=== PATIENT | male | born 1935 | race Caucasian/White ===

== ENCOUNTER 2018-09-10 07:41 | Day surgery (SDC) | payer MEDICARE, OTHER ==
[~2018-09-10] VITALS: Ht 177.8 cm; Wt 92.1 kg
[~2018-09-10 07:41] MED LIST: Adult Low Dose81 MG PO; Omeprazole20 M1 PO
== END 2018-09-10 10:18 | disposition home or self-care (01) ==
LOC: ORSCSDS 07:41
PROVIDERS: Internal Medicine Gastroenterology
PROC: 0DBM8ZX Excision of Descending Colon, Via Natural or Artificial Opening Endoscopic, Diagnostic (ICD-10-PCS; principal; 2018-09-10 09:00)
PROC: 0DBK8ZX Excision of Ascending Colon, Via Natural or Artificial Opening Endoscopic, Diagnostic (ICD-10-PCS; principal; 2018-09-10 09:00)
PROC: 0DB58ZX Excision of Esophagus, Via Natural or Artificial Opening Endoscopic, Diagnostic (ICD-10-PCS; 2018-09-10 09:00)
DX: Z12.11 Encounter for screening for malignant neoplasm of colon (principal); Z86.010 Personal history of colon polyps; D12.2 Benign neoplasm of ascending colon; D12.4 Benign neoplasm of descending colon; K57.30 Diverticulosis of large intestine without perforation or abscess without bleeding; K64.4 Residual hemorrhoidal skin tags; K64.8 Other hemorrhoids; K21.0 Gastro-esophageal reflux disease with esophagitis; E78.5 Hyperlipidemia, unspecified; K44.9 Diaphragmatic hernia without obstruction or gangrene; Z79.899 Other long term (current) drug therapy
CPT/HCPCS: 88305; J2704; J7120

== ENCOUNTER 2022-01-14 08:24 | Day surgery (SDC) | payer MEDICARE, OTHER ==
[~2022-01-14] VITALS: Ht 180.3 cm; Wt 88.9 kg
--- NOTE | 2022-01-14 08:57 | NUR ---
01/14/22 0857 Sascha De Los Santos TETRACAINE AT 0843 INTO RIGHT EYE PLEDGET AT 846 INTO RIGHT EYE
--- NOTE | 2022-01-14 11:15 | NUR ---
01/14/22 1115 Ian Oneill PT D/C TO HOME AMBU TO CAR DRIVEN BY , AOX3, KATY LS CTA, VS WNL, [id number] RA, NO C/O PAIN, NV, PT VU D/C INSTRUCTIONS, DENIES ANY NEEDS.
== END 2022-01-14 11:13 | disposition home or self-care (01) ==
LOC: ORSCSDS 08:24
PROVIDERS: Student in an Organized Health Care Education/Training Program
PROC: 08DJ3ZZ Extraction of Right Lens, Percutaneous Approach (ICD-10-PCS; principal; 2022-01-14 09:45)
DX: H25.13 Age-related nuclear cataract, bilateral (principal); H52.201 Unspecified astigmatism, right eye; Z79.899 Other long term (current) drug therapy
CPT/HCPCS: J2001; J2250; J3010; J7040; V2632

== ENCOUNTER 2022-01-28 09:54 | Day surgery (SDC) | payer MEDICARE, OTHER ==
[~2022-01-28] VITALS: Ht 177.8 cm; Wt 89.1 kg
== END 2022-01-28 11:40 | disposition home or self-care (01) ==
LOC: ORSCSDS 09:54
PROVIDERS: Student in an Organized Health Care Education/Training Program
PROC: 08RK3JZ Replacement of Left Lens with Synthetic Substitute, Percutaneous Approach (ICD-10-PCS; principal; 2022-01-28 11:15)
DX: H25.12 Age-related nuclear cataract, left eye (principal); H52.202 Unspecified astigmatism, left eye; K21.9 Gastro-esophageal reflux disease without esophagitis
CPT/HCPCS: J2001; J2250; J3010; J7040; V2632

== ENCOUNTER → 2022-03-07 | Outpatient (CLI) | payer MEDICARE, OTHER | LOC: LAB SHORT 10:00 | DX: N39.0 Urinary tract infection, site not specified (principal) | CPT/HCPCS: 87077; 87086; 87186 ==

== ENCOUNTER → 2023-08-31 | Outpatient (CLI) | payer MEDICARE, OTHER ==
[2023-08-31 11:44] LABS: Source, Urine Clean Catch
[2023-08-31 13:19] LABS: Appearance, Urine Hazy (Clear); Bilirubin, Urine Neg (Neg); Blood, Urine 5+ (Neg); Color, Urine Yellow (P-Yellow); Glucose Qualitative, Urine Neg (Neg); Ketones, Urine 1+ (Neg); Leukocyte Esterase, Urine 2+ (Neg); Nitrite, Urine Neg (Neg); Protein, Urine 3+ (Neg); Urobilinogen, Urine 1+ (Normal)
[2023-08-31 13:30] LABS: Bacteria Many /hpf; Red Blood Cells, Urine 25-50 /hpf (0-2); Squamous Epithelial Cells Not Seen /hpf (Few)
[2023-08-31 13:31] LABS: Calcium Oxalate Crystals Few /hpf
== END | disposition home or self-care (01) ==
LOC: LAB SHORT 11:41 → LAB 11:41 → LAB FUT 08-30 11:05 → EDSTATUS 08-30 11:05
PROVIDERS: Physician Assistant Medical
DX: N39.0 Urinary tract infection, site not specified (principal)
CPT/HCPCS: 81001; 87086

== ENCOUNTER → 2023-09-02 | Outpatient (CLI) | payer MEDICARE, OTHER | END | disposition home or self-care (01) | LOC: LAB 16:27 → LAB SHORT 16:27 | DX: N39.0 Urinary tract infection, site not specified (principal) | CPT/HCPCS: 87086 ==